=== PATIENT | female | born 1965 | race Caucasian/White ===

== ENCOUNTER 2023-06-22 14:54 | Outpatient (AMB) | payer BC, SELFPAY ==
[2023-06-22 15:03] VITALS: BP 120/78; PULSE 71; TEMP 36.9; O2SAT 97; BMI 26.7
--- NOTE | 2023-06-22 15:03 | AM.OFFWIN_ITS ---
Intake Vital Signs 06/22/23 15:03 Height 5 ft 9 in Weight 180 lb 8 oz BMI 26.7 BP 120/78 Blood Pressure Location Lt brachial Position Sitting Pulse 71 Pulse Source Pulse Oximeter Temp 98.5 F Temp Source Oral Pulse Oximetry (%) 97 Oxygen Delivery Method Room Air Intake Visit Reasons: EST/sinus pressure (lobby masked) Intake Note: pt is here for 2 1/2 weeks of nasal congestion on her right side and is spitting up phlegm all day and has been snoring at night and is coughing off and on all day Allergies No Known Allergies Allergy (Verified 06/22/23 15:06) Do you need a note to return to daycare/school/sports/work: No HPI HPI Comments History of Present Illness Details 57 y/o female patient who presents to [facility] in clinic with c/o Sinus pressure and chest congestion x 2 weeks now. Review of Systems Const All systems reviewed & are unremarkable except as noted in HPI and below Physical Exam Vital Signs: Last Vital Signs Temp 98.5 F 06/22/23 15:03 Pulse 71 06/22/23 15:03 BP 120/78 06/22/23 15:03 Pulse Ox 97 06/22/23 15:03 Oxygen Delivery Method Room Air 06/22/23 15:03 BMI result Body Mass Index 26.7 Const General: comfortable and no acute distress HEENT Head: Yes normocephalic Ears: external ears normal and TM's normal bilaterally General nose exam: Normal external nose present, Abnormal mucous membranes and turbinates present boggy and erythematous and Nasal discharge present Face and sinus: Yes sinuses nontender Mouth: oropharynx normal and moist mucous membranes Throat: Yes posterior oropharynx normal and Yes uvula midline Resp Effort & Inspection: normal respiratory effort Auscultation: clear to auscultation bilaterally Cardio Rate: regular rate Rhythm: regular rhythm Assessment & Plan Assessment & Plan (1) Upper respiratory tract infection: Code(s): J06.9 - Acute upper respiratory infection, unspecified Qualifiers: URI type: unspecified viral URI Qualified Code(s): J06.9 - Acute upper respiratory infection, unspecified Plan: - OTC home remedies - Warm fluids - Humidifier -Rest Orders: Orders SARS-CoV2/FLU/RSV Today J06.9 - Acute upper respiratory infection, unspecified Medications: New oxymetazoline 0.05% (Afrin (oxymetazoline)) 2 sprays intranasal Q12H 3 days PRN 15 mL 0RF nasal congestion J06.9 - Acute upper respiratory infection, unspecified Coding Level of Care Code Est Pt Level 3 (72329) Diagnoses Viral upper respiratory tract infection J06.9 URI type: unspecified viral URI Time Spent (min) 15
== END 2023-06-22 15:44 | disposition home or self-care (01) ==
PROVIDERS: PCP Internal Medicine; Visit Provider Nurse Practitioner Family
DX: J06.9 Acute upper respiratory infection, unspecified (principal)
CPT/HCPCS: 99213

== ENCOUNTER 2023-06-22 17:05 | Outpatient (REF) | payer BC, SELFPAY ==
[2023-06-22 22:12] LABS: Influenza A PCR NEGATIVE (Negative); Influenza B PCR NEGATIVE (Negative); Resp Syncy Virus RNA Qual PCR NEGATIVE (Negative); SARS COV2 PCR INHOUSE NEGATIVE (Negative)
== END 2023-06-22 17:06 | disposition home or self-care (01) ==
LOC: HO.LNP 17:05
PROVIDERS: Visit Provider Nurse Practitioner Family
DX: Z11.52 Encounter for screening for COVID-19 (principal); Z20.822 Contact with and (suspected) exposure to COVID-19; J06.9 Acute upper respiratory infection, unspecified
CPT/HCPCS: 0241U

== ENCOUNTER 2025-03-14 09:42 | Outpatient (REF) | payer OTHER, SELFPAY ==
[2025-03-14 15:02] LABS: Resp Syncy Virus RNA Qual PCR NEGATIVE (Negative); SARS COV2 PCR INHOUSE NEGATIVE (Negative)
== END 2025-03-14 09:43 | disposition home or self-care (01) ==
LOC: HO.LNP 09:42
PROVIDERS: PCP Internal Medicine; Visit Provider Physician Assistant Medical
DX: J02.9 Acute pharyngitis, unspecified (principal); J06.9 Acute upper respiratory infection, unspecified
CPT/HCPCS: 87637; 87880

== ENCOUNTER 2025-03-14 09:42 | Outpatient (AMB) | payer OTHER, SELFPAY ==
--- OUTSIDE RECORDS SUMMARY | 2025-03-14 09:46 | XMS_ITS | Clinical Summary ---
Author Organization [facility] [address] [facility] Address [address] [place] [address] Phone Care Team Providers Care Bander Name Role Phone Radha Michel MD Primary Care Provider + [phone] Allergies No known active allergies Medications rosuvastatin (CRESTOR) 10 mg tablet Take 1 tablet (10 mg total) by mouth 1 (one) time each day. Active polyethylene glycol (Golytely) 236-22.74-6.74 -5.86 gram solution Take 4L by mouth once for one dose. May substitue any PEG. Starting at 6PM the night before your procedure drink 1 8oz glasses at your own pace until you complete half of the gallon. Finish 2nd half of the gallon 5 hours before your procedure. 4000 mL Active bisacodyL (DULCOLAX) 5 mg EC tablet Take 2 tablets by mouth right before beginning bowel prep. See instructions provided by the office 2 tablet 5 Active Surgical History Surgery Date Site/Laterality Comments HERNIA REPAIR N/A SECTION Medical History Medical History Date Comments Hyperlipidemia Social History Tobacco Use Types Packs/Day Years Used Date Smoking Tobacco: Never Smokeless Tobacco: Never Tobacco Cessation:Counseling Given: Not Answered Interpersonal Safety Answer Date Record ed Physical Abuse Unrecognized value 06/06/2024 Verbal Abuse Unrecognized value 06/06/2024 Comments Unknown Sex and Gender Information Value Date Recorded Sex Assigned at Female 06/05/2024 2:26 PM EST Legal Sex Female 7:57 AM EST Gender Identity Female 06/05/2024 2:26 PM EST Sexual Orientation Choose not to disclose 2024 2:28 PM EST Obstetrics History Last Filed Vital Signs Vital Sign Reading Time Taken Comments Blood Pressure 111/62 06/06/2024 10:31 AM EST Pulse 66 06/06/2024 10:31 AM EST Temperature 36.1 C (97 F) 06/06/2024 10:11 AM EST Respiratory Rate 18 06/06/2024 10:31 AM EST Oxygen Saturation 96% 06/06/2024 10:31 AM EST Inhaled Oxygen Concentration - - Weight 79.4 kg (175 lb) 06/06/2024 9:28 AM EST Height 175.3 cm (5' 9 ) 06/06/2024 9:28 AM EST Body Mass Index 25.84 06/06/2024 9:28 AM EST Plan of Treatment Health Maintenance Due Date Last Done Comments DTaP,Tdap,and Td Vaccines (1 - Tdap) 11/27/1983 Pneumococcal Vaccine: 50+ Years (1 of 1 - PCV) 2014 Zoster Vaccines (1 of 2) 2014 HIV Screening 04/09/2022 Hepatitis C Screening 04/09/2022 Social Influencers of Health Screening 04/09/2022 Depression Screening 05/07/2024 Influenza Vaccine (#1) 2025 , 02/15/2022, 04/05/2021, Additional history exists Breast Cancer Screening 09/16/2025 09/17/19 24, 09/11/2022, 09/07/2021, Additional history exists Cervical Cancer Screening: Pap Smear 10/17/2027 10/16/2024 Colorectal Cancer Screening: Colonoscopy 06/06/2034 06/06/2024, 07/11/2013 RSV Immunization Adult Patients (1 - 1-dose 75+ series) 11/27/2039 COVID-19 Vaccine Completed 02/21/2024, 09/2022, 03/08/2022, Additional history exists HIB Vaccines Aged Out No longer eligi ble based on patient's age to complete this topic HPV Vaccines Aged Out No longer eligi ble based on patient's age to complete this topic Hepatitis A Vaccines Aged Out No long er eligible based on patient's age to complete this topic Hepatitis B Vaccines Aged Out No long er eligible based on patient's age to complete this topic IPV Vaccines Aged Out No longer eligi ble based on patient's age to complete this topic MMR Vaccines Aged Out No longer eligi ble based on patient's age to complete this topic Meningococcal ACWY Vaccine Aged Out N o longer eligible based on patient's age to complete this topic Meningococcal B Vaccine Aged Out No l onger eligible based on patient's age to complete this topic RSV Immunization Patients Under 20 months Aged Out No longer eligible based on patient's age to complete this topic Varicella Vaccines Aged Out No longer eligible based on patient's age to complete this topic Medical Devices Implanted Type Area Resizer Operator Device Identifier Shelf Expiration Date Model / Serial / Lot Mesh N/A: Abdomen Procedures Procedure Name Priority Date/Time Associated Diagnosis Comments PAP SMEAR Routine 10/16/2024 12:00 AM EDT Encounter for gynecological examination (general) (routine) without abnormal findings COLONOSCOPY Routine 06/06/2024 10:10 AM EST Colon cancer screening [facility] SCREENING DIGITAL Routine 09/17/2023 4:32 PM EDT Encounter for screening mammogram for malignant neoplasm of breast from Last 3 Months or Most Recently Relevant to Health Maintenance Results * Pap smear (10/16/2024 12:00 AM EDT) Interpretation Negative for intraepithelial lesion or malignancy 10/20/2024 8:47 AM EDT [facility] General Categorization Negative 10/20/2024 8:47 AM [facility] Specimen Adequacy Satisfactory for evaluation, endocervical/reed sformation zone component present 10/20/2024 8:47 AM [facility] Pap Methodology Liquid Based Pap Test 10/20/2024 8:47 AM [facility] Disclaimer The Pap test is a screening test which carries an inherent false negative rate. These test results should be correlated with the patient's clinical findings and history. This Pap test was processed using an automated screening system. Technical cytopathology services provided by [facility], at [address] [place] [address] [place] [address] (CLIA # [id number]/Venus Huggins MD, [employer]oman[employer]uring Technician.) 10/20/2024 8:47 AM EDT [facility] Console Pap Interpretation Reported 10/20/2024 8:47 AM EDT [facility] Brushing/Spatula Cervix uteri structure / Unknown 10/16/2024 10/17/2024 7:28 AM EDT us Elliott Maurer MD LAB CYTOLOGY ORDERABLES Final Result [facility] [address] [place] [address], * COLONOSCOPY Anesthesia - MAC; [facility] ENDOSCOPY (06/06/2024 10:10 AM EST) Anatomical Region Laterality Modality Endoscopy 06/06/2024 9:50 AM EST Impressions 06/06/2024 10:14 AM EST - The examined portion of the ileum was normal. - One 14 mm polyp in the cecum, removed with a hot snare. Resected and retrieved. Clip (MR conditional) was placed. - Diverticulosis in the sigmoid colon. - Internal hemorrhoids. Recommendation: - Await pathology results. - Repeat colonoscopy for surveillance based on pathology results. Narrative 06/06/2024 10:14 AM EST [facility] Patient Name: Jana Santos Procedure Date: 06/06/2024 9:50 AM Date of : 1965 Age: 58 Gender: Female Note Status: Finalized Attending MD: Darlyn Farley MD, Procedure Date No Time: 06/06/2024 Procedure: Colonoscopy Indications: Screening for colorectal malignant neoplasm Providers: Darlyn Farley MD Referring MD: Radha Michel MD Medicines: Propofol per Anesthesia Complications: No immediate complications. Estimated Blood Loss: Estimated blood loss: none. Procedure: Pre-Anesthesia Assessment: - ASA Grade Assessment: II - A patient with mild systemic disease. After I obtained informed consent, the scope was passed under direct vision. Throughout the procedure, the patient's blood pressure, pulse, and oxygen saturations were monitored continuously.The Colonoscope was introduced through the anus and advanced to the terminal ileum. The colonoscopy was performed without difficulty. The patient tolerated the procedure well. The quality of the bowel preparation was excellent. Findings: The perianal and digital rectal examinations were normal. The terminal ileum appeared normal. A 14 mm polyp was found in the cecum. The polyp was sessile. The polyp was removed with a hot snare. Resection and retrieval were complete. To prevent bleeding after the polypectomy, one hemostatic clip was successfully placed (MR conditional). There was no bleeding during, or at the end, of the procedure. A few small-mouthed diverticula were found in the sigmoid colon. Internal hemorrhoids were found during retroflexion. The hemorrhoids were Grade I (internal hemorrhoids that do not prolapse). Procedure Code(s): --- Professional --- 15462, Colonoscopy, flexible; with removal of tumor(s), polyp(s), or other lesion(s) by snare technique Diagnosis Code(s): --- Professional --- Z12.11, Encounter for screening for malignant neoplasm of colon D12.0, Benign neoplasm of cecum CPT copyright 2020 [employer]. All rights reserved. The codes documented in this report are preliminary and upon physician coder review may be revised to meet current compliance requirements. Darlyn Farley MD 06/06/2024 10:14:14 AM This report has been signed electronically.Darlyn Farley MD Number of Addenda: 0 Note Initiated On: 06/06/2024 9:50 AM Scope In: Scope Out: Endoscopy Department at [facility] - [address] [place] [id number] Procedure Note Darlyn Farley MD - 06/06/2024 [facility] Patient Name: Jana Santos Procedure Date: 06/06/2024 9:50 AM Date of : 1965 Age: 58 Gender: Female Note Status: Finalized Attending MD: Darlyn Farley MD, Procedure Date No Time: 06/06/2024 Procedure: Colonoscopy Indications: Screening for colorectal malignant neoplasm Providers: Darlyn Farley MD Referring MD: Radha Michel MD Medicines: Propofol per Anesthesia Complications: No immediate complications. Estimated Blood Loss: Estimated blood loss: none. Procedure: Pre-Anesthesia Assessment: - ASA Grade Assessment: II - A patient with mild systemic disease. After I obtained informed consent, the scope was passed under direct vision. Throughout theprocedure, the patient's blood pressure, pulse, and oxygen saturations were monitored continuously.The Colonoscope was introduced through the anus and advanced to the terminal ileum. The colonoscopy was performed without difficulty. The patient tolerated the procedure well. The quality of the bowel preparation was excellent. Findings: The perianal and digital rectal examinations were normal. The terminal ileum appeared normal. A 14 mm polyp was found in the cecum. The polyp was sessile. The polyp was removed with a hot snare. Resection and retrieval were complete. To prevent bleeding after the polypectomy, one hemostatic clip was successfully placed (MR conditional). There wasno bleeding during, or at the end, of the procedure. A few small-mouthed diverticula were found in the sigmoid colon. Internal hemorrhoids were found duringretroflexion. The hemorrhoids were Grade I (internal hemorrhoids that do not prolapse). Procedure Code(s): --- Professional --- 60254, Colonoscopy, flexible; with removal of tumor(s), polyp(s), or other lesion(s) by snare technique Diagnosis Code(s): --- Professional --- Z12.11, Encounter for screening for malignantneoplasm of colon D12.0, Benign neoplasm of cecum CPT copyright 2020 [employer]. All rights reserved. The codes documented in this report are preliminary and upon physician coder reviewmay be revised to meet current compliance requirements. Darlyn Farley MD 06/06/2024 10:14:14 AM This report has been signed electronically.Darlyn Farley MD Number of Addenda: 0 Note Initiated On: 06/06/2024 9:50 AM Scope In: Scope Out: Endoscopy Department at [facility] - [address] [place] [phone] IMPRESSION: - The examined portion of the ileum was normal. - One 14 mm polyp in the cecum, removed with a hot snare. Resected and retrieved. Clip (MRconditional) was placed. - Diverticulosis in the sigmoid colon. - Internal hemorrhoids. Recommendation: - Await pathology results. - Repeat colonoscopy for surveillance based on pathology results. us Darlyn Farley MD GI~PROCEDURE ORDERABLES Final Result * [facility] SCREENING DIGITAL (09/17/2023 4:32 PM EDT) Anatomical Region Laterality Modality Mammography 09/17/2023 3:40 PM EDT Narrative 09/17/2023 4:32 PM EDT [facility] Diagnostic Imaging Department [address] [place] [address] Patient: JANA SANTOS /Age/Sex: 1965 - 57 - F Unit#: [id number] [facility]emonic/Ordering Site: [facility] Ordering Physician: RADHA MICHEL MD [facility] Screening Digital - 09/17/23 - 1618 Report Status:Signed EXAM: [facility] Screening Digital EXAM DATE AND TIME: 09/17/2023 4:19 PM HISTORY: Annual screening COMPARISON: Multiple exams dating back to 2019 TECHNIQUE: Bilateral digital breast tomosynthesis was performed in the CC and MLO projections. Computer aided detection with [employer] Kel[employer] 3D 3.1 was employed. TISSUE DENSITY: b. There are scattered areas of fibroglandular density. FINDINGS: No suspicious masses, grouped microcalcifications, or areas of architectural distortion are seen. The skin and vascularity are unremarkable. IMPRESSION: Stable mammographic appearance of the breasts. No evidence of malignancy is seen. A negative mammogram in the presence of a clinically suspicious palpable abnormality does not preclude the possibility of malignancy or alter the indications for biopsy. BI-RADS: Category 1: Negative RECOMMENDATION(S): 1: Routine screening mammogram BILATERAL in 1 year. 3341F, 7025F Dictating Physician: DIANA PILLAI MD Electronically Signed by: DIANA PILLAI MD Dic Date/Time: 09/17/23 1631 Sign date/Time: 09/17/23 1632 Procedure Note Diana Pillai MD - 12/24/2023 [facility] Diagnostic Imaging Department [address] [place] [address] Patient: TOMJANA D.O.B./Age/Sex: 1965 - 57 - F Unit#: [id number] Location/Status: [facility] Mnemonic/Ordering Site: [facility] Ordering Physician: RADHA MICHEL MD [facility] Screening Digital - 09/17/23 - 1618 Report Status:Signed EXAM: [facility] Screening Digital EXAM DATE AND TIME: 09/17/2023 4:19 PM HISTORY: Annual screening COMPARISON: Multiple exams dating back to 2019 TECHNIQUE: Bilateral digital breast tomosynthesis was performed in the CCand MLO projections. Computer aided detection with [employer] 3D 3.1was employed. TISSUE DENSITY: b. There are scattered areas of fibroglandular density. FINDINGS: No suspicious masses, grouped microcalcifications, or areas ofarchitectural distortion are seen. The skin and vascularity are unremarkable. IMPRESSION: Stable mammographic appearance of the breasts. No evidence of malignancyis seen. A negative mammogram in the presence of a clinically suspicious palpable abnormality does not preclude the possibility of malignancy or alter the indications for biopsy. BI-RADS: Category 1: Negative RECOMMENDATION(S): 1: Routine screening mammogram BILATERAL in 1 year. 3341F, 7025F Dictating Physician: DIANA PILLAI MD Electronically Signed by: DIANA PILLAI MD Dic Date/Time: 09/17/23 1631 Sign date/Time: 09/17/23 1632 Radha Michel MD IMG BI PROCEDURES Final Resu lt from Last 3 Months or Most Recently Relevant to Health Maintenance Insurance [facility] Care Teams Bander Relationship Specialty Start Date End Date Radha Michel MD [address] [place] [id number] PCP - General Internal Medicine 03/18/24
--- OUTSIDE RECORDS SUMMARY | 2025-03-14 09:46 | XMS_ITS | Encounter Summary ---
Author Organization [facility] Address [address] [place] [address] Care Team Providers Care Director Instructional Material Name Role Phone Art Elias MD Primary Care Provider [phone] Encounter Details Date Type Department Care Team (Latest Contact Info) Description 10/17/2024 Lab Requisition [facility] - Main Lab [address] [place] [address] Elliott Maurer MD [address] [facility] [address] [place] [phone] Encounter for gynecological examination (general) (routine) without abnormal findings Social History Tobacco Use Types Packs/Day Years Used Date Smoking Tobacco: Never Smokeless Tobacco: Never Interpersonal Safety Answer Date Record ed Physical Abuse Unrecognized value 06/06/2024 Verbal Abuse Unrecognized value 06/06/2024 Comments Unknown Sex and Gender Information Value Date Recorded Sex Assigned at Female 06/05/2024 2:26 PM EST Legal Sex Female 7:57 AM EST Gender Identity Female 06/05/2024 2:26 PM EST Sexual Orientation Choose not to disclose 2024 2:28 PM EST documented as of this encounter Plan of Treatment Not on file documented as of this encounter Procedures Procedure Name Priority Date/Time Associated Diagnosis Comments PAP SMEAR Routine 10/16/2024 12:00 AM EDT Encounter for gynecological examination (general) (routine) without abnormal findings documented in this encounter Results * Pap smear (10/16/2024 12:00 AM EDT) Interpretation Negative for intraepithelial lesion or malignancy 10/20/2024 8:47 AM EDT [facility] General Categorization Negative 10/20/2024 8:47 AM [facility] Specimen Adequacy Satisfactory for evaluation, endocervical/reed sformation zone component present 10/20/2024 8:47 AM [facility] Pap Methodology Liquid Based Pap Test 10/20/2024 8:47 AM EDT [facility] Disclaimer The Pap test is a screening test which carries an inherent false negative rate. These test results should be correlated with the patient's clinical findings and history. This Pap test was processed using an automated screening system. Technical cytopathology services provided by [facility], at [address] [place] [address] (CLIA # [id number]/Venus Huggins MD, Pulmonologist/Intensivist.) 10/20/2024 8:47 AM EDT [facility] Console Pap Interpretation Reported 10/20/2024 8:47 AM [facility] Brushing/Spatula Cervix uteri structure / Unknown 10/16/2024 10/17/2024 7:28 AM EDT us Elliott Maurer MD LAB CYTOLOGY ORDERABLES Final Result [facility] [address] [place] [address], documented in this encounter Visit Diagnoses Diagnosis Encounter for gynecological examination (general) (routine) without abnormal findings documented in this encounter Care Teams Director Instructional Material Relationship Specialty Start Date End Date Art Elias MD [address] [place] [id number] PCP - General Internal Medicine 03/18/24 documented as of this encounter
[2025-03-14 11:25] VITALS: BP 110/68; PULSE 72; TEMP 36.9; O2SAT 98
--- NOTE | 2025-03-14 11:25 | AM.OFFWIN_ITS ---
Intake Vital Signs 03/14/25 11:25 Height 5 ft 9 in BMI Reason not done Patient refused/unable BP 110/68 Blood Pressure Location Lt brachial Position Sitting Pulse 72 Pulse Source Pulse Oximeter Temp 98.5 F Temp Source Oral Pulse Oximetry (%) 98 Oxygen Delivery Method Room Air Intake Visit Reasons: EP-Strep Throat Allergies No Known Allergies Allergy (Verified 03/14/25 11:25) Do you need a note to return to daycare/school/sports/work: No HPI HPI Comments History of Present Illness Details This is a 59-year-old female presented to the walk-in clinic complaining of a sore throat. Patient states her symptoms started last night. She states she had subjective fevers and chills last night although did not take her temperature. She does report some mild nasal congestion and rhinorrhea with postnasal drip. She states she woke up this morning and she had bilateral jaw pain as well. She denies any cough. She denies any dysphagia. 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 Review of Systems Const All systems reviewed & are unremarkable except as noted in HPI and below Reports no additional complaints Eyes Reports no additional complaints ENT Reports no additional complaints Card Reports no additional complaints Resp Reports no additional complaints GI Reports no additional complaints Reports no additional complaints Musc Reports no additional complaints Skin/Breast Reports system reviewed and no additional complaints, except as documented Neuro Reports no additional complaints Psych Reports no additional complaints Endo Reports no additional complaints Sachin/Lymph Reports no additional complaints Aller/Immun Reports no additional complaints Physical Exam Exam Exam: Vital signs reviewed. Constitutional: Non-toxic appearing. No acute distress. Well-developed and well-nourished. HEENT: Normocephalic and atraumatic. Tympanic membranes without erythema, edema, or bulging bilaterally. External auditory canals without erythema or edema bilaterally. Moist mucous membranes. Mild posterior pharyngeal erythema with + postnasal drip. No postauricular swelling, erythema, or tenderness to palpation. Skin: Warm and dry. No rashes or lesions noted. Neck: Full and painless range of motion. No cervical lymphadenopathy. Cardio: Regular rate. No lower extremity edema. No JVD. Pulmonary: No respiratory distress. No accessory muscle usage. Clear to auscultation bilaterally without wheezing, crackles, or rhonchi. Gastrointestinal: Soft, nontender, and nondistended in all 4 quadrants. Musculoskeletal: Normal range of motion in joints throughout the body. No deformity or other signs of injury. Neuro: Alert and oriented x4. Cranial nerves 2-12 grossly intact. No focal deficits appreciated. Psych: Normal mood and affect. Vital Signs: Last Vital Signs Temp 98.5 F 03/14/25 11:25 Pulse 72 03/14/25 11:25 BP 110/68 03/14/25 11:25 Pulse Ox 98 03/14/25 11:25 Oxygen Delivery Method Room Air 03/14/25 11:25 Results AMB Rapid Strep AMB Rapid Strep Negative Last Edit by Baldomero Amaro CMA on 03/14/25 11 :35 Results Reviewed Results Reviewed: Laboratory Last Values Strep Scn Rapid Clinic Negative 03/14/25 11:32 Assessment & Plan Assessment & Plan (1) Upper respiratory tract infection: Code(s): J06.9 - Acute upper respiratory infection, unspecified Qualifiers: URI type: unspecified viral URI Qualified Code(s): J06.9 - Acute upper respiratory infection, unspecified Plan 59-year-old female presented to the walk-in clinic complaining of a sore throat. On physical examination, patient has mild posterior pharyngeal erythema with postnasal drip. Patient's vital signs are stable, physical exam is otherwise benign, and patient is overall nontoxic appearing. A rapid strep test was obtained and was negative in office. History and physical most consistent with acute pharyngitis and upper respiratory tract infection, likely viral. No evidence of peritonsillar mass/abscess, peritonsillar cellulitis, or, unilateral neck swelling. Recommended symptomatic management including rest, increased fluids, advil/tylenol for pain/fever, salt water gargles, and over the counter throat lozenges. Patient advised to follow up here or go to the emergency room for worsening/persistent symptoms. Patient verbalizes understanding and is in agreement the plan. Orders: Orders AMB Rapid Strep Screen Today Z13.9 - Encounter for screening, unspecified SARS-CoV2/FLU/RSV Today J06.9 - Acute upper respiratory infection, unspecified Coding Level of Care Code Est Pt Level 3 (26728) Diagnoses Viral upper respiratory tract infection J06.9 URI type: unspecified viral URI
== END 2025-03-14 11:59 | disposition home or self-care (01) ==
LOC: HO.HMCWIC 09:42
PROVIDERS: PCP Internal Medicine; Visit Provider Physician Assistant Medical
DX: Z13.9 Encounter for screening, unspecified (principal); J06.9 Acute upper respiratory infection, unspecified